=== PATIENT | male | born 1965 | race African-American/Black ===

== ENCOUNTER 2020-05-05 10:56 | Inpatient (IN) | payer MEDICARE, MEDICAID ==
[2020-05-05] MEDS ORDERED: Clindamycin/D5W 600 mg/50 ml Premix Bag ONE (12:26)
[2020-05-05 12:31] LABS: #Eosinphils 0.1 thou/uL (0.0-0.7); #Lymphocytes 0.9 thou/uL (1.20-3.40); %Basophils 0.3 % (0.0-1.0); %Eosinophils 0.8 % (0.0-10.0); %Lymphocytes 8.9 % (21.0-51.0); %Monocytes 9.7 % (0.0-10.0); %Neutrophils 80.3 % (42.0-75.0); Hemoglobin 14.8 g/dL (14.0-18.0); Mean Corpuscular HGB CONC 33.4 g/dL (32.0-36.0); Mean Corpuscular Hemoglobin 30.6 pg (27.0-31.0); Mean Corpuscular Volume 91.7 fL (78.0-98.0); Mean Platelet Volume 7.7 fL (7.4-10.4); Platelet Count 283 thou/uL (130-400); RBC Distribution Width 11.8 % (11.5-14.5); Red Blood Cell (RBC) Count 4.84 mill/uL (4.70-6.10)
[2020-05-05 12:34] LABS: PTT 28.9 sec (22.9-36.1); Prothrombin Time 13.5 sec (12.0-14.7)
[2020-05-05 12:49] LABS: ALT (SGPT) 11 U/L (8-55); AST (SGOT) 16 U/L (5-34); Albumin 3.7 g/dL (3.5-5.0); Alkaline Phosphatase 60 U/L (40-110); Anion Gap 13 mmol/L (10-20); BUN (Urea Nitrogen) 12 mg/dL (8.4-25.7); Bilirubin, Total 0.8 mg/dL (0.2-1.2); Calc. Creatinine Clearance 0 mL/min (70-130); Calcium 8.8 mg/dL (7.8-10.44); Carbon Dioxide 25 mmol/L (22-29); Chloride 104 mmol/L (98-107); Globulin 3.3 g/dL (2.4-3.5); Glucose 101 mg/dL (70-105); Potassium 3.6 mmol/L (3.5-5.1); Sodium 138 mmol/L (136-145)
--- NOTE | 2020-05-05 14:26 | HP ---
PRIMARY CARE PHYSICIAN: Dr. Daniel in [place]. CHIEF COMPLAINT: Neck pain and swelling. HISTORY OF PRESENT ILLNESS: This is a 55-year-old male with a history of hypertension and previous stroke, who presents with a 2-week history of swelling underneath the midline of his jaw. This has gotten progressively worse and it has been making hard to swallow due to pressure into the back of his throat and he has not been able to eat anything for the past two days. He did see Dr. Fulton, ENT doctor today in the clinic. He did have a CT scan done of the neck, which confirmed the abscess per speaking with the patient and the ER doctor; however, we do not have the films with us here. The patient was scheduled for an I and D of the abscess at about 1:30 this afternoon. However, he was told by Dr. Fulton's office to go ahead and go to the emergency room for evaluation of his airway and for admission to the Medicine Team while he is awaiting his surgery to make sure that he does not decompensate while awaiting. REVIEW OF SYSTEMS: CONSTITUTIONAL: No fevers, no chills. EYES: No double vision or blurred vision. ENT: No congestion or drainage. He does have some soreness from pressure in the back of his throat from the swelling and he does note some hoarseness to his voice. CARDIOVASCULAR: No chest pain. No palpitations or racing heart. PULMONARY: No coughing, wheezing, or shortness of breath. GASTROINTESTINAL: No abdominal pain. No nausea or vomiting. No diarrhea or constipation. GENITOURINARY: No dysuria or hematuria. MUSCULOSKELETAL: No muscle aches or joint pain. SKIN: No rashes or other lesions noted. NEUROLOGIC: The patient has some residual left lower extremity weakness after his stroke. He does wear a brace on his left foot because of that. No new neurologic symptoms. PAST MEDICAL HISTORY: 1. Hypertension. 2. Previous right-sided jose juan infarct in 2015 with residual weakness on the left side. 3. Questionable mild heart attack in 2015 as well. PAST SURGICAL HISTORY: None. SOCIAL HISTORY: The patient smokes half a pack of cigarettes per day and drinks 1 to 2 cans of beer per day on average and he also reports marijuana use. No other illicit drug use. The patient reports he is a full code. He denies any close relatives who can be his medical decision maker. He reports that his girlfriend would likely need to be his medical decision maker if he is incapacitated, her name is Yulisa Myers, she is present in the room with him. FAMILY HISTORY: Positive for hypertension and diabetes. ALLERGIES: NO KNOWN DRUG ALLERGIES. CURRENT MEDICATIONS: The patient is on regular blood pressure medications; however, he cannot remember the name of it. He thinks it may be nifedipine, but does not know the dose. He also previously was on aspirin after his stroke. PHYSICAL EXAMINATION: VITAL SIGNS: Blood pressure 116/76, pulse 67, respirations 17, temperature 99.2, O2 saturation 98% on room air. GENERAL: This is a well-developed, obese, male, in no acute distress. HEENT: Pupils are equal, round, and reactive to light. Oropharynx is difficult to visualize secondary to not being able to open his jaw very wide, but no visible masses in the posterior oropharynx as far as I could see. NECK: The patient does have significant swelling in the submental area with tenderness to palpation and induration and minimal erythema. No fluctuance noted. No other masses. No thyroid nodules or enlargement. HEART: Regular rate and rhythm. No murmurs, rubs, or gallops. LUNGS: Clear to auscultation bilaterally. No wheezes, crackles, or rhonchi. ABDOMEN: Soft, nontender to palpation. Normoactive bowel sounds. No hepatosplenomegaly or other masses. EXTREMITIES: No clubbing, cyanosis, or edema. SKIN: No rashes or other lesions noted. NEUROLOGIC: The patient does have some significant weakness in his left lower extremity. He does have a brace in place for foot drop and ankle stability. His neurologic exam, specifically his facial nerves are all normal otherwise. PSYCHIATRIC: Alert and oriented x3. Normal mood and affect. LABORATORY DATA: CBC grossly within normal limits. PT and INR are normal. No other lab available. No imaging available. ASSESSMENT: 1. Submental neck abscess with pressure on the back of his throat preventing him from swallowing. The patient does not currently have any evidence of airway compromise. Dr. Fulton has the patient scheduled and is going to take him back for I and D of the abscess soon. The patient was given clindamycin and Levaquin in the emergency room. We will defer to Dr. Fulton for continued antibiotic treatment. 2. Hypertension. We will try to obtain the patient's home blood pressure medication dose. We will give p.r.n. labetalol and hydralazine as needed for any severe elevations of blood pressure. 3. Previous stroke. We will put the patient on a baby aspirin daily. 4. Gastrointestinal prophylaxis. Put the patient on Pepcid twice a day. 5. Deep venous thrombosis prophylaxis. Put the patient on sequential compression devices while in bed. 6. Code status. The patient is a full code. Should he be incapacitated, his girlfriend would be his medical decision maker. Job ID: [id number]
[2020-05-05 16:23] LABS: SARS-CoV-2 NAA Rapid Test Not Detected (NotDetected)
[2020-05-05] MEDS ORDERED: Acetaminophen 325 MG TAB PO PRN (17:01)
[2020-05-05] MEDS ORDERED: Senokot S 8.6-50 MG TAB PO PRN (17:01)
[2020-05-05] MEDS ORDERED: Labetalol HCl 100 MG/20 ML VIAL SLOW IVP PRN (17:01)
[2020-05-05] MEDS ORDERED: Acetaminophen 650 MG Suppository PR PRN (17:01)
[2020-05-05] MEDS ORDERED: HYDROcodone/Acetaminophen 5/325 mg Tablet PO PRN ×2 (17:01)
[2020-05-05] MEDS ORDERED: Ondansetron PF 4 MG/2 ML Vial IVP PRN (17:01)
[2020-05-05] MEDS ORDERED: Guaifenesin DM 100-10/5 ML UDCUP PO PRN (17:01)
[2020-05-05] MEDS ORDERED: Ondansetron ODT 4 MG TAB PO PRN (17:01)
[2020-05-05] MEDS ORDERED: hydrALAZINE 20 MG/ML VIAL SLOW IVP PRN (17:01)
[2020-05-05 17:21] VITALS: BMI 33.4
[2020-05-05] MEDS ORDERED: Promethazine HCl 25 MG/ML VIAL IM PRN ×2 (18:43→22:49)
[2020-05-05] MEDS ORDERED: Promethazine HCl 25 MG/ML VIAL SLOW IVP PRN ×2 (18:43→22:49)
[2020-05-05] MEDS ORDERED: Ondansetron HCl/PF 4 MG/2 ML Vial IVP PRN ×2 (18:43→22:49)
[2020-05-05] MEDS ORDERED: Meperidine HCl/PF 25 MG/ML VIAL SLOW IVP PRN (18:43)
[2020-05-05] MEDS ORDERED: Bacitracin Zinc Ointment 30 gm TUBE ONE (20:04)
[2020-05-05] MEDS ORDERED: Lidocaine 1% w/Epinephrine 1:100K 20 ML VIAL ONE (20:04)
[2020-05-05] MEDS ORDERED: Sodium Chloride 0.9% 10 ML ONE (21:15)
[2020-05-05] MEDS ORDERED: AFRIN NASAL MIST 15 ML BOT ONE (21:15)
[2020-05-05] MEDS: Famotidine/PF 20 mg/2ml Vial SLOW IVP SCH (21:18)
[2020-05-05] MEDS ORDERED: Fentanyl 100 MCG/2 ML VIAL ONE ×2 (21:27→23:09)
[2020-05-05] MEDS ORDERED: Lidocaine 2% Jelly 5 ML TUBE ONE (21:27)
[2020-05-05] MEDS ORDERED: Rocuronium Bromide 10 MG/ML (10ML VIAL) ONE (21:37)
[2020-05-05] MEDS ORDERED: PROPOFOL 200 MG/20 ML VIAL ONE (21:37)
[2020-05-05] MEDS ORDERED: diphenhydrAMINE 50 MG/ML VIAL ONE (21:37)
[2020-05-05] MEDS ORDERED: Succinylcholine 200 MG/10 ml SYRINGE FS ONE (21:37)
[2020-05-05] MEDS ORDERED: Lidocaine 1% PF 5 ML VIAL ONE (21:37)
[2020-05-05] MEDS ORDERED: Ondansetron PF 4 MG/2 ML Vial ONE (21:37)
[2020-05-05] MEDS ORDERED: Chlorhexidine Gluconate 15 ML UDCUP SSP ONE (21:46)
[2020-05-05] MEDS ORDERED: Clindamycin/D5W 900 mg/50 ml Premix Bag ONE (22:08)
[2020-05-05] MEDS ORDERED: SUGAMMADEX SODIUM 500 MG/5 ML VIAL ONE (22:08)
[2020-05-05] MEDS ORDERED: Morphine Sulfate 2 MG/ML SYRINGE SLOW IVP PRN (22:49)
[2020-05-05] MEDS ORDERED: HYDROmorphone 2 MG/ML VIAL SLOW IVP PRN (22:49)
[2020-05-05] MEDS ORDERED: Ketorolac Tromethamine 30 MG/ML VIAL IVP PRN (22:49)
[2020-05-05] MEDS ORDERED: Morphine 2 MG/ML VIAL SLOW IVP PRN (23:06)
[2020-05-06] MEDS: D5 0.9% NS w/ 20 mEq KCl 1,000 ML IV SCH ×2 (00:31→15:39)
[2020-05-06] MEDS: Ibuprofen 800 MG TAB PO SCH ×4 (00:59→18:32)
--- NOTE | 2020-05-06 01:57 | CON ---
DATE OF CONSULTATION: REASON FOR CONSULTATION: Neck abscess, necrotic teeth. CHIEF COMPLAINT AND HISTORY OF PRESENT ILLNESS: This is a 55-year-old black male with a 2-week history of tooth pain and subsequent neck swelling. He was referred for evaluation by the hospitalist service and admitted from the ER. He had seen Dr. Arteaga previously who felt the patient needed I and D and tooth removal. REVIEW OF SYSTEMS: The patient does complain of a sore throat and pain and some hoarseness from swelling and complains of tooth pain. All other review of systems negative. PAST MEDICAL HISTORY: Hypertension, previous right-sided stroke with left-sided weakness, questionable heart attack in 2015. PAST SURGICAL HISTORY: None. SOCIAL HISTORY: The patient does smoke a pack a day as well as drink daily, approximately 2 drinks per day. He also reports frequent marijuana use. FAMILY HISTORY: Positive for hypertension and diabetes. ALLERGIES: NO KNOWN DRUG ALLERGIES. MEDICATIONS: The patient says he takes Plavix, but he has been off for a couple of days. PHYSICAL EXAMINATION: VITAL SIGNS: The patient's blood pressure 116/76, pulse 67, respirations 17, temperature 99.2, and saturating 98% on room air. GENERAL: He is awake, alert, and oriented x3, in no acute distress. HEENT: His pupils are equal, round, reactive to light and accommodation. He has a tender slightly mobile tooth #17 as well as tooth #20. He has fluctuance and induration in the submental and submandibular area on the left. This area is tender to palpation. He does have a 2-finger trismus. LABORATORY DATA: His white count is 10. CT scan shows fluid collection on 05/02/2020 from [facility] and necrotic tooth #17 and #20, fluid collection appears in the left submental and submandibular area. ASSESSMENT: A 55-year-old male with left submandibular and submental abscess secondary to necrotic teeth #20 and #17. PLAN: Take the patient to the operating room for I and D of abscess and extraction of indicated teeth. Antibiotics per hospitalist team. Job ID: [id number]
[2020-05-06] MEDS: Clindamycin/D5W 900 MG in Premix Bag 1 BAG IVPB SCH ×3 (05:43→21:06)
[2020-05-06 06:30] LABS: Anion Gap 14 mmol/L (10-20); BUN (Urea Nitrogen) 11 mg/dL (8.4-25.7); Band 4 % (5-11); Calc. Creatinine Clearance 92 mL/min (70-130); Calcium 8.7 mg/dL (7.8-10.44); Carbon Dioxide 24 mmol/L (22-29); Chloride 104 mmol/L (98-107); Glucose 109 mg/dL (70-105); Hemoglobin 14.4 g/dL (14.0-18.0); Lymphocytes 3 % (21-51); MDiff Complete? YES; Mean Corpuscular HGB CONC 31.6 g/dL (32.0-36.0); Mean Corpuscular Volume 91.9 fL (78.0-98.0); Mean Platelet Volume 7.9 fL (7.4-10.4); Monocytes 12 % (0-10); Neutrophil 81 % (42-75); Platelet Count 300 thou/uL (130-400); Platelet Morphology Comment Appears Adequate; Potassium 4.4 mmol/L (3.5-5.1); RBC Morphology Normal; Red Blood Cell (RBC) Count 4.97 mill/uL (4.70-6.10); Sodium 138 mmol/L (136-145); White Blood Cell (WBC) Count 13.5 thou/uL (4.8-10.8)
[2020-05-06] MEDS: Aspirin 81 mg Enteric Coated Tablet PO SCH (08:17)
[2020-05-06] MEDS: Famotidine/PF 20 mg/2ml Vial SLOW IVP SCH ×2 (08:18→21:06)
--- NOTE | 2020-05-06 09:41 | PDOC.HOSPP ---
- Subjective Encounter Date: 05/06/20 Encounter Time: 09:25 Subjective: f/u for necrotic teeth abscess s/p #17, #20 extractions POD #1. Receiving IV Clindamycin and overall feeling better. Tolerating liquid diet. Pain minimal. - Objective Vital Signs & Weight: Vital Signs (12 hours) Temp Pulse Resp BP BP Pulse Ox 05/06/20 07:35 98.4 F 64 16 148/91 H 98 05/06/20 03:58 98.7 F 57 L 18 124/71 99 05/06/20 03:25 98.2 F 74 18 155/90 H 97 05/06/20 02:52 98 05/06/20 02:25 98.2 F 64 18 157/91 H 96 05/06/20 01:25 98.2 F 69 18 157/92 H 96 05/06/20 00:25 98.2 F 76 18 158/90 H 97 05/06/20 00:10 98.2 F 68 18 157/90 H 96 05/05/20 23:55 98 F 71 18 138/79 95 05/05/20 23:40 98 F 74 18 157/90 H 96 05/05/20 23:25 98 F 71 18 156/83 H 95 Weight Weight 194 lb 11.2 oz I&O: 05/05/20 05/06/20 05/07/20 06:59 06:59 06:59 Intake Total 1400 Output Total 1200 Balance 200 Result Diagrams: 05/06/20 05:32 05/06/20 05:32 Additional Labs: Microbiology 05/05/20 22:13 Neck - Abscess Bacterial Culture - Preliminary Laboratory Tests 05/05/20 05/05/20 05/06/20 12:18 15:00 05:32 WBC 10.0 Neutrophils % 80.3 H Neutrophils % (Manual) 81 H SARS-CoV-2 Rap RNA(RT-PCR) Not Detected Hospitalist ROS - Medication Medications: Active Medications Generic Name Dose Route Start Last Admin Trade Name Freq PRN Reason Stop Dose Admin Hydrocodone Bitart/Acetaminophen 1 tab 05/05/20 17:01 05/06/20 01:35 Hydrocodone/Acetaminophen 5/325 Mg Tablet PO 1 tab Q4H PRN Administration Moderate Pain (4-6) Aspirin 81 mg 05/06/20 09:00 05/06/20 08:17 Aspirin 81 Mg Enteric Coated Tablet PO 81 mg DAILY MOSES Administration Famotidine 20 mg 05/05/20 21:00 05/06/20 08:18 Famotidine/Pf 20 Mg/2ml Vial SLOW IVP 20 mg Q12HR MOSES Administration Potassium Chloride/Dextrose/Sod Cl 1,000 mls @ 80 mls/hr 05/05/20 23:15 05/06/20 00:31 D5 0.9% Ns W/ 20 Meq Kcl IV Not Given .[id number] MOSES Clindamycin Phosphate/Dextrose 50 mls @ 100 mls/hr 05/06/20 06:00 05/06/20 05:43 900 mg/ Device IVPB 50 mls Q8HR MOSES Administration Ibuprofen 800 mg 05/05/20 23:59 05/06/20 05:43 Ibuprofen 800 Mg Tab PO 800 mg Q6HR MOSES Administration - Exam General Appearance: NAD, awake alert Eye: PERRL, anicteric sclera ENT: normocephalic atraumatic ENT - other findings: Arturo drain submandibular region, + edema Neck: supple, no JVD, no thyromegaly Neck - other findings: + adenopathy Heart: RRR, no gallops, no rubs, normal peripheral pulses Heart - other findings: S1, S2 Respiratory: CTAB, no wheezes, no rales, no ronchi, normal chest expansion, no tachypnea Gastrointestinal: soft, non-tender, non-distended, normal bowel sounds, no palpable masses Extremities: no cyanosis, no clubbing, no edema Skin: normal turgor Neurological: cranial nerve grossly intact, no new deficit Musculoskeletal: normal tone, normal strength, no muscle wasting Psychiatric: normal affect, A&O x 3 Hosp A/P (1) Submental abscess Code(s): L02.01 - CUTANEOUS ABSCESS OF FACE Status: Acute Plan: s/p #17, #20 extractions POD #1, continue Clindamycin IV, pain control as indicated, Arturo drain (2) Necrotic tooth Code(s): K02.9 - DENTAL CARIES, UNSPECIFIED Status: Acute Plan: See above #1 (3) Polysubstance abuse Code(s): F19.10 - OTHER PSYCHOACTIVE SUBSTANCE ABUSE, UNCOMPLICATED Status: Chronic Plan: Cessation resources (4) HTN (hypertension) Code(s): I10 - ESSENTIAL (PRIMARY) HYPERTENSION Status: Chronic Qualifiers: Hypertension type: essential hypertension Qualified Code(s): I10 - Essential (primary) hypertension Plan: Labile, resume home BP regimen - Plan continue antibiotics, social worker health services, out of bed/ambulate, DVT proph w/SCDs Stable overall Continue Clindamycin IV Peridex SSP Pain control as clinically indicated Appreciate OMFS assistance AM lab: BMP, CBC Likely home in 24h
[2020-05-06] MEDS: Chlorhexidine Gluconate 15 ML UDCUP SSP SCH ×3 (10:27→21:05)
[2020-05-07] MEDS: Ibuprofen 800 MG TAB PO SCH ×3 (00:04→12:14)
[2020-05-07] MEDS: D5 0.9% NS w/ 20 mEq KCl 1,000 ML IV SCH (02:05)
[2020-05-07] MEDS: Clindamycin/D5W 900 MG in Premix Bag 1 BAG IVPB SCH (05:28)
[2020-05-07 05:58] LABS: Anion Gap 15 mmol/L (10-20); BUN (Urea Nitrogen) 9 mg/dL (8.4-25.7); Calc. Creatinine Clearance 118 mL/min (70-130); Calcium 7.9 mg/dL (7.8-10.44); Carbon Dioxide 22 mmol/L (22-29); Chloride 105 mmol/L (98-107); Glucose 115 mg/dL (70-105); Potassium 4.1 mmol/L (3.5-5.1); Sodium 138 mmol/L (136-145)
[2020-05-07 06:01] LABS: Band 1 % (5-11); Eosinophils 2 % (0-10); Hemoglobin 14.1 g/dL (14.0-18.0); Lymphocytes 10 % (21-51); MDiff Complete? YES; Mean Corpuscular HGB CONC 32.5 g/dL (32.0-36.0); Mean Corpuscular Hemoglobin 29.7 pg (27.0-31.0); Mean Corpuscular Volume 91.4 fL (78.0-98.0); Mean Platelet Volume 8.4 fL (7.4-10.4); Monocytes 10 % (0-10); Neutrophil 76 % (42-75); Platelet Count 280 thou/uL (130-400); Platelet Morphology Comment Appears Adequate; RBC Distribution Width 11.9 % (11.5-14.5); Red Blood Cell (RBC) Count 4.75 mill/uL (4.70-6.10); White Blood Cell (WBC) Count 8.8 thou/uL (4.8-10.8)
[2020-05-07 08:14] VITALS: BP 141/83; TEMP 98.5
[2020-05-07] MEDS: Aspirin 81 mg Enteric Coated Tablet PO SCH (09:42)
[2020-05-07] MEDS: Famotidine/PF 20 mg/2ml Vial SLOW IVP SCH (09:42)
[2020-05-07] MEDS: Chlorhexidine Gluconate 15 ML UDCUP SSP SCH (09:54)
--- NOTE | 2020-05-07 13:27 | PDOC.DS.DS ---
Provider - Provider Date of Admission: 05/06/20 09:50 Date of Discharge: 05/07/20 Admitting Provider: Juan Pablo Ellington MD Primary Care Physician: OUT OF TOWN Course - Hospital Course Hospital Course: The patient is a 55-year-old male with past medical history of CVA who presented to the hospital with 2 weeks of tooth pain and neck swelling. The patient was evaluated by maxillofacial surgery service and underwent I&D of the abscesses and extraction of the involved teeth. He tolerated the procedure well and was able to tolerate his diet postoperatively. No signs of sepsis on discharge. He will be sent home on a course of clindamycin. Resuscitation Status: 05/05/20 13:17 Resuscitation Status Routine Resuscitation Status: FULL: Full Resuscitation Discussed with: Patient - Labs Lab Results: 05/07/20 05:14 05/07/20 05:14 Abnormal Lab Results - Last 48 hrs 05/06/20 05:32: WBC 13.5 H, MCHC 31.6 L, Neutrophils % (Manual) 81 H, Band Neuts % (Manual) 4 L, Lymphocytes % (Manual) 3 L, Monocytes % (Manual) 12 H 05/07/20 05:14: Neutrophils % (Manual) 76 H, Band Neuts % (Manual) 1 L, Lymphocytes % (Manual) 10 L Microbiology - Entire Visit 05/05/20 22:13 Neck - Abscess Bacterial Culture - Preliminary 05/05/20 22:13 Neck - Abscess Anaerobic Culture - Pending - Physical Exam Vitals: Vital Signs (12 hours) Temp Pulse Resp BP Pulse Ox 05/07/20 08:00 98.5 F 52 L 20 141/83 H 94 L 05/07/20 04:00 98.6 F 61 18 150/85 H 96 Weight Weight 194 lb 11.2 oz Physical Exam: The patient was seen and examined on the day of discharge. Plan - Discharge Medications Prescriptions: Clindamycin [Cleocin] 300 mg PO Q8HR #42 cap Lactobacillus [Floranex] 1 tab PO BID-AC #14 tab Home Medications: Medication Instructions Recorded Confirmed Type Aspirin [Ecotrin Regular Strength] 325 mg PO DAILY #0 tab 11/20/14 05/05/20 Rx Metoprolol Tartrate [Lopressor] 12.5 mg PO BID #0 tab 11/20/14 05/05/20 Rx Amlodipine [Norvasc] 1 tab PO DAILY 05/05/20 05/05/20 History Atorvastatin Calcium [Lipitor] 1 tab PO DAILY 05/05/20 05/05/20 History Clopidogrel Bisulfate [Clopidogrel] 1 tab PO DAILY 05/05/20 05/05/20 History Losartan [Cozaar] 100 mg PO DAILY 05/05/20 05/05/20 History Clindamycin [Cleocin] 300 mg PO Q8HR #42 cap 05/07/20 Rx Lactobacillus [Floranex] 1 tab PO BID-AC #14 tab 05/07/20 Rx Allergies: No Known Allergies Allergy (Verified 05/05/20 17:03) - Follow up Plan Referrals: [facility] PHYSICIAN,OUT OF [Primary Care Provider] - Gaudencio Fulton DDS [Active] - Disposition: HOME Quality - Care Measures CORE MEASURES:: N/A
--- NOTE | 2020-06-15 06:10 | OP ---
DATE OF PROCEDURE: 05/05/2020 PREOPERATIVE DIAGNOSES: 1. Submental space abscess. 2. Left submandibular space abscess. 3. Necrotic and infected teeth 17 and 20. POSTOPERATIVE DIAGNOSES: 1. Submental abscess. 2. Left submandibular space abscess. 3. Necrotic and infected teeth 17 and 20. PROCEDURES PERFORMED: 1. Transcervical incision and drainage of submental space abscess. 2. Transcervical incision and drainage of the left submandibular space abscess. 3. Surgical removal of tooth 17. 4. Simple removal of tooth 20. INDICATIONS FOR PROCEDURE: This is a 55-year-old male, who presented with a 2-week history of tooth pain and subsequent development of neck swelling. He had previously seen Dr. Arteaga and ultimately presented to the emergency room after the neck swelling progressed, and Dr. Arteaga felt as though the infection was secondary to a dentoalveolar source, and we were consulted for evaluation and management. BUSINESS SOLUTIONS CONSULTANT SURGEON: Vik Fulton D.D.S., M.D. DESCRIPTION OF PROCEDURE: The patient was identified in the preoperative holding area, and all questions were answered. He was subsequently taken to the operating room and transferred to the operating room table in supine position. He was subsequently intubated via the Anesthesia Service, and general anesthetic was induced without complication. A surgical time-out was then performed. The head and neck were prepped and draped in a sterile manner, and the oral cavity was prepped with Peridex oral rinse. A throat pack was placed. Local anesthetic was delivered to the left mandible and to the cervical region. A skin incision was made over the fluctuant neck mass and submental region, and this incision was made with a 15 blade. Bovie cautery was then used to obtain hemostasis, and the wound was deepened using a combination of blunt and sharp dissection until the abscesses in the submental and submandibular spaces were entered into. Upon entry into the abscess, a significant amount of purulence was obtained, and culture swabs were taken and sent for examination. The finger dissection ensued to open up the entire abscess cavity involving the submental and left submandibular spaces until all loculations were broken up and the abscesses were completely decompressed. Copious irrigation of the neck wound ensued with bacitracin-infused normal saline. At this time, attention was turned back intraorally, where a hockey-stick incision over bone was made in the tooth #17 region, and a conservative full-thickness mucoperiosteal flap was elevated. Conservative ostectomy was performed around tooth #17, and the tooth was subsequently sectioned and removed in pieces. Heavy granulation tissue was curetted apically, and the socket was irrigated with bacitracin infused normal saline. Tooth #20 was then elevated and removed with forceps, and the socket was also curetted and copiously irrigated with bacitracin infused normal saline. The oral cavity was irrigated, suctioned free of debris and the throat pack was removed. Attention was turned back to the neck, where the neck wound was once again copiously irrigated, and series of quarter-inch Erie drains were placed into the decompressed abscess and secured to the skin with a nylon drain stitch. Gauze pressure packs with extraoral tails were placed intraorally to catch any discharge, and the patient was turned over to Anesthesia Service for emergence and extubation after the neck wound was also dressed. ESTIMATED BLOOD LOSS: 25 mL. INTRAVENOUS FLUIDS: Please see anesthetic record. COMPLICATIONS: None. SPECIMENS: Purulence for Gram stain, culture and sensitivity from the submental and submandibular spaces. IMPLANTS: None. DRAINS: Erie drains to submental and submandibular spaces. FINDINGS: Significant foul purulence throughout the submental and submandibular spaces associated with infected teeth 17 and 20. DISPOSITION: The patient was extubated and transferred to the recovery room in good condition. Job ID: [id number]
== END 2020-05-07 13:52 | disposition home or self-care (01) | DRG 137 ==
LOC: ERS 10:56 → ERHOLD 14:29 → T4-B 17:01 → OBSVTOIN 05-06 09:50
PROVIDERS: ADMIT Emergency Medicine; ATTEND Internal Medicine
PROC: 0CDXXZ1 Extraction of Lower Tooth, Multiple, External Approach (ICD-10-PCS; principal; 2020-05-05)
PROC: 0J910ZZ Drainage of Face Subcutaneous Tissue and Fascia, Open Approach (ICD-10-PCS; 2020-05-05)
DX: K12.2 Cellulitis and abscess of mouth (principal); L02.01 Cutaneous abscess of face; I69.354 Hemiplegia and hemiparesis following cerebral infarction affecting left non-dominant side; I10 Essential (primary) hypertension; F17.210 Nicotine dependence, cigarettes, uncomplicated; E66.9 Obesity, unspecified; F19.10 Other psychoactive substance abuse, uncomplicated; Z68.33 Body mass index [BMI] 33.0-33.9, adult; Z79.01 Long term (current) use of anticoagulants; Z20.828 Contact with and (suspected) exposure to other viral communicable diseases; K04.1 Necrosis of pulp
CPT/HCPCS: 36415; 80048; 80053; 85025; 85610; 85730; 86850; 86900; 86901; 87070; 87076; 87205; 94760; 96365; 96366; 96367; 96375; G0378; J1200; J1956; J2405; J2704; J3010; J3480; J3490; S0028; U0002